=== PATIENT | female | born 1995 | race Caucasian/White ===

== ENCOUNTER 2018-07-08 17:59 | Emergency (ER) | payer SELFPAY ==
--- NOTE | 2018-07-08 19:59 | RAD ---
INDICATION: Cough COMPARISON: None TECHNIQUE: PA and lateral dual-energy views were obtained. FINDINGS: Bones/Soft Tissues: There are no acute bony findings. Cardiomediastinal: The cardiomediastinal silhouette is normal. Lungs: There are no infiltrates. Pleura: There are no pleural effusions. Other: None IMPRESSION: NEGATIVE EXAMINATION.
[2018-07-08] MEDS ORDERED: Albuterol/Ipratropium NEB.SOL* Albuterol 2.5 MG/Ipratropium 0.5 MG 3 ML INH ONE ×2 (20:21→23:00)
--- NOTE | 2018-07-08 22:59 | ED ---
Respiratory - HPI Summary HPI Summary: This is Chris morris documenting for attending physician Sierra Self MD. This patient is a 23 year old F presenting to [facility] c/o a cough that has persistent for the last month. Pt was seen at the almost 3 weeks ago and dx with bronchitis. She finished her course of abx, steroids, inhaler and states sx have returned. She believes her course of steroids were about 14 days long. The patient rates the pain 7/10 in severity. Patient reports trouble breathing. Pt uses marijuana and has hx of asthma - History of Current Complaint Chief Complaint: EDUpperRespComplaint Stated Complaint: SOB, COUGH Time Seen by Provider: 07/08/18 22:34 Hx Obtained From: Patient Onset/Duration: Lasting Weeks - 4, Still Present Timing: Constant Initial Severity: Mild Current Severity: Mild Pain Intensity: 0 Character: Cough (Nonproductive) - Allergy/Home Medications Allergies/Adverse Reactions: Allergies Allergy/AdvReac Type Severity Reaction Status Date / Time No Known Allergies Allergy Verified 07/08/18 18:17 PMH/Surg Hx/FS Hx/Imm Hx Endocrine/Hematology History: Denies: Hx Bone Marrow Disease, Hx Diabetes, Hx Thyroid Disease Cardiovascular History: Denies: Hx Cardiomegaly, Hx Congestive Heart Failure Respiratory History: Reports: Hx Asthma Psychiatric History: Denies: Hx Schizophrenia Infectious Disease History: No Infectious Disease History: Denies: Traveled Outside the [place] in Last 30 Days - Family History Known Family History: Negative: Diabetes, Renal Disease, Respiratory Disease, Seizure Disorder - Social History Alcohol Use: Occasionally Substance Use Type: Reports: Marijuana Substance Use Comment - Amount & Last Used: daily Hx Tobacco Use: Yes Smoking Status (MU): Never Smoked Tobacco Review of Systems Negative: Fever Positive: Cough, Other - trouble breathing All Other Systems Reviewed And Are Negative: Yes Physical Exam - Summary Physical Exam Summary: VITAL SIGNS: Reviewed. GENERAL: Patient is a well-developed and nourished female who is lying comfortable in the stretcher. Patient is not in any acute respiratory distress. HEAD AND FACE: No signs of trauma. No ecchymosis, hematomas or skull depressions. No sinus tenderness. EYES: PERRLA, EOMI x 2, No injected conjunctiva, no nystagmus. EARS: Hearing grossly intact. Ear canals and tympanic membranes are within normal limits. MOUTH: Oropharynx within normal limits. NECK: Supple, trachea is midline, no adenopathy, no JVD, no carotid bruit, no c- spine tenderness, neck with full ROM. CHEST: Symmetric, no tenderness at palpation LUNGS: Mild inspiratory and expiratory wheezes CVS: Regular rate and rhythm, S1 and S2 present, no murmurs or gallops appreciated. ABDOMEN: Soft, non-tender. No signs of distention. No rebound no guarding, and no masses palpated. Bowel sounds are normal. EXTREMITIES: FROM in all major joints, no edema, no cyanosis or clubbing. NEURO: Alert and oriented x 3. No acute neurological deficits. Speech is normal and follows commands. SKIN: Dry and warm Triage Information Reviewed: Yes Vital Signs On Initial Exam: Initial Vitals Temp Pulse Resp BP Pulse Ox 97.9 F 77 20 133/79 99 07/08/18 18:13 07/08/18 18:13 07/08/18 18:13 07/08/18 18:13 07/08/18 18:13 Vital Signs Reviewed: Yes Diagnostics - Vital Signs Vital Signs Temp Pulse Resp BP Pulse Ox 07/08/18 20:16 98.3 F 96 20 123/69 98 07/08/18 18:13 97.9 F 77 20 133/79 99 - Laboratory Lab Statement: Any lab studies that have been ordered have been reviewed, and results considered in the medical decision making process. - Radiology CXR Radiology Interpretation Completed By: Radiologist - NEGATIVE EXAMINATION. ED physician has reviewed this radiology report. Re-Evaluation - Re-Evaluation First Eval Re-Evaluation Time: 23:19 Change: Improved Comment: Pt is feeling better and would like to go home. Disposition - Course Assessment/Plan: This patient is a 23 year old F presenting to [facility] c/o a cough that has persistent for the last month. Pt was seen at the almost 3 weeks ago and dx with bronchitis. She finished her course of abx, steroids, inhaler and states sx have returned. She believes her course of steroids were about 14 days long. The patient rates the pain 7/10 in severity. Patient reports trouble breathing. Pt uses marijuana and has hx of asthma. CXR reveals , per radiologist, NEGATIVE EXAMINATION. Dx asthma. In the ED course the patient was given a breathing treatment which alleviated her sx. Patient will be discharged with prescription for prednisone, albuterol, and codeine and follow up from PCP referral center. The patient is agreeable with this plan. - Diagnoses Provider Diagnoses: Asthma Discharge - Sign-Out/Discharge Documenting (check all that apply): Patient Departure - Discharge Plan Condition: Stable Disposition: HOME Prescriptions: Albuterol HFA INHALER* [Ventolin HFA Inhaler*] 2 puff INH Q6H PRN #1 mdi PRN Reason: Sob/Wheezing Codeine TAB* [Codeine Tab*] 30 mg PO Q6H PRN #14 tab MDD 4 PRN Reason: Cough predniSONE TAB* [Deltasone TAB*] 50 mg PO DAILY #7 tab Patient Education Materials: Asthma (ED) [place] [facility] [place] [facility] [place]] Additional Instructions: RETURN TO EMERGENCY DEPARTMENT FOR ANY NEW OR WORSENING SYMPTOMS Attestation Statement Scribe Attestation: This is Chris morris documenting for attending physician Sierra Self MD. User Type: Provider with Scribe Provider Attestation: The documentation recorded by the kemiibe accurately reflects the service I personally performed and the decisions made by me.
[2018-07-08] MEDS ORDERED: Codeine TAB* 30 MG PO ONE (23:03)
[2018-07-08] MEDS ORDERED: Albuterol 2.5 MG/3 ML NEB.SOL* (0.083%) INH SCH (23:45)
[2018-07-09 00:25] VITALS: BP 118/80
== END 2018-07-09 00:39 | disposition home or self-care (01) ==
LOC: ED 17:59
DX: J45.909 Unspecified asthma, uncomplicated (principal)
CPT/HCPCS: 71046; 99282; A9270-GY

== ENCOUNTER 2020-02-10 10:33 | Emergency (ER) | payer BC ==
--- NOTE | 2020-02-10 11:12 | ED ---
Abdominal Pain/Female - HPI Summary HPI Summary: Pt. is a 24 y.o female who presents to the ER for upper abd. pain x 3 days. Pt. also notes intermittent chest pain and SOB. Denies cough, fever, sore throat, vomiting, dysuria, vaginal bleeding/discharge. Pt. notes pain is sharp and constant in nature. Also notes diarrhea. Past hx of PCOS. Sxs are moderate in severity. No current modifying factors. Patient also notes occasional bright red blood with wiping after bowel movement. - History of Current Complaint Chief Complaint: EDAbdPain Stated Complaint: ABDOMINAL PAIN PER PT Time Seen by Provider: 02/10/20 10:46 Hx Obtained From: Patient Pain Intensity: 8 Allergies/Adverse Reactions: Allergies Allergy/AdvReac Type Severity Reaction Status Date / Time No Known Allergies Allergy Verified 02/10/20 10:38 Home Medications: Home Medications Pantoprazole TAB * [Protonix TAB*] 40 mg PO DAILY #30 tab 02/10/20 [Rx] PMH/Surg Hx/FS Hx/Imm Hx Previously Healthy: Yes Endocrine/Hematology History: Denies: Hx Bone Marrow Disease, Hx Diabetes, Hx Thyroid Disease Cardiovascular History: Denies: Hx Cardiomegaly, Hx Congestive Heart Failure Respiratory History: Reports: Hx Asthma Psychiatric History: Denies: Hx Schizophrenia Infectious Disease History: No Infectious Disease History: Denies: Traveled Outside the [place] in Last 30 Days - Family History Known Family History: Positive: Non-Contributory Negative: Diabetes, Renal Disease, Respiratory Disease, Seizure Disorder - Social History Occupation: Employed Part-time Lives: With Family Alcohol Use: Occasionally Substance Use Type: Reports: Marijuana Substance Use Comment - Amount & Last Used: daily Hx Tobacco Use: Yes Smoking Status (MU): Never Smoked Tobacco Review of Systems Constitutional: Negative Negative: Fever, Chills ENT: Negative Positive: Chest Pain Positive: Shortness Of Breath. Negative: Cough Positive: Abdominal Pain, Diarrhea, Nausea. Negative: Vomiting Genitourinary: Negative Negative: dysuria, discharge, hematuria Musculoskeletal: Negative Skin: Negative Neurological/Mental Status: Negative All Other Systems Reviewed And Are Negative: Yes Physical Exam Triage Information Reviewed: Yes Vital Signs On Initial Exam: Initial Vitals Temp Pulse Resp BP Pulse Ox 98.9 F 60 16 134/82 100 02/10/20 10:34 02/10/20 10:34 02/10/20 10:34 02/10/20 10:34 02/10/20 10:34 Vital Signs Reviewed: Yes Appearance: Positive: Well-Appearing Skin: Positive: Warm, Dry Head/Face: Positive: Normal Head/Face Inspection Eyes: Positive: Normal, EOMI Neck: Positive: Supple Respiratory/Lung Sounds: Positive: Clear to Auscultation, Breath Sounds Present. Negative: Rales, Rhonchi, Wheezes Cardiovascular: Positive: Normal, RRR Abdomen Description: Positive: Other: - Obese. Abd. is soft with mild tenderness to LUQ and LLQ. No rebound or guarding. Mild bilateral CVA tenderness. Rectal exam performed with the medical laboratory techniciansOralia hastings, keyanna exam shows small nonthrombosed hemorrhoids. Digital rectal exam reveals a large amount of hard stool in the rectal vault. No gross blood. Neurological: Positive: Normal, CN Intact II-III Psychiatric: Positive: Affect/Mood Appropriate Procedures - Sedation Patient Received Moderate/Deep Sedation with Procedure: No Diagnostics - Vital Signs Vital Signs Temp Pulse Resp BP Pulse Ox 02/10/20 11:00 51 12 100 02/10/20 10:57 52 109/66 100 02/10/20 10:56 52 100 02/10/20 10:34 98.9 F 60 16 134/82 100 - Laboratory Result Diagrams: 02/10/20 11:26 02/10/20 11:26 Lab Statement: Any lab studies that have been ordered have been reviewed, and results considered in the medical decision making process. Abdominal Pain Fem Course/Dx - Course Course Of Treatment: Patient with upper abdominal pain. Exam is unremarkable chest benign abdomen. Afebrile. General. Physical given with mild relief of symptoms. Labs unremarkable other than mildly elevated CRP. Chest x-ray negative for acute findings per radiology. ECG done at 1117 shows a sinus bradycardia of 58 bpm, normal axis, no ST change. On exam she has mild nonthrombosed external hemorrhoids as well as large amount of hard stool in the lower vault. Suspect symptoms possibly related to gastritis and constipation. Patient does note she drinks a lot of coffee doesn't take anti-inflammatories as well as eating red possible soft. Will treat with Protonix. Discussed foods and drink to avoid. Recommended MiraLAX for constipation as directed. Follow-up with the [facility] within one week for recheck and return to the ER symptoms change or worsen. Patient understands and agrees with plan. - Diagnoses Differential Diagnosis: Positive: Constipation, Ectopic , Pancreatitis , Peptic Ulcer Disease, Pneumonia, Renal Colic, Urinary Tract Infection Provider Diagnoses: Abdominal pain, Gastritis, Constipation, Hemorrhoids Discharge ED - Sign-Out/Discharge Documenting (check all that apply): Patient Departure - Discharge Plan Condition: Good Disposition: HOME Prescriptions: Pantoprazole TAB * [Protonix TAB*] 40 mg PO DAILY #30 tab Patient Education Materials: Gastritis (ED), Constipation (ED), Hemorrhoids (ED ), Acute Abdominal Pain (ED) Forms: *Work Release Referrals: [facility] [Outside] [facility] [place] [facility] [Outside] Additional Instructions: Please schedule follow up appointment with the [facility] Take Protonix as directed Recommend over the counter miralax as directed for constipation Increase fluids and fiber in diet Avoid coffee/caffeine, smoking, acid foods/drink, NSAIDS (motrin) Return to ER for increased pain, fever, vomiting or if concerned - Billing Disposition and Condition Condition: GOOD Disposition: Home
[2020-02-10] MEDS ORDERED: Al Hydrox/Mg Hydrox/Simet LIQ* 30 ML UDC PO ONE (11:13)
[2020-02-10] MEDS ORDERED: Lidocaine 2% VISCOUS* 15 ML UDC PO ONE (11:13)
[2020-02-10 11:37] LABS: ABS Basophils 0.1 10^3/ul (0-0.2); ABS Eosinophils 0.3 10^3/ul (0-0.6); ABS Lymphocytes 4.3 10^3/ul (1.0-4.8); ABS Monocytes 0.4 10^3/ul (0-0.8); ABS Neutrophils 3.8 10^3/ul (1.5-7.7); Eosinophil % 3.1 %; Hematocrit 38 % (35-47); Hemoglobin 12.8 g/dL (12.0-16.0); Lymphocyte % 48.7 %; Mean Corpuscular HGB Conc 34 g/dL (31-36); Mean Corpuscular Hemoglobin 28 pg (27-31); Mean Corpuscular Volume 84 fL (80-97); Mean Platelet Volume 7.1 fL (7.4-10.4); Nucleated Red Blood Cells % 0.1; Platelet Count 380 10^3/uL (150-450); Red Blood Count 4.52 10^6 /uL (3.70-4.87); Red Cell Distribution Width 13 % (10-15); White Blood Count 8.9 10^3/uL (3.5-10.8)
[2020-02-10 12:00] LABS: ALT 17 U/L (7-52); AST 17 U/L (13-39); Albumin 4.5 g/dL (3.2-5.2); Albumin/Globulin Ratio 1.7 (1-3); Alkaline Phosphatase 75 U/L (34-104); Anion Gap 6 mmol/L (2-11); BUN/Creatinine Ratio 13.6 (8-20); Blood Urea Nitrogen 9 mg/dL (6-24); C Reactive Protein 14.28 mg/L (<8.01); CO2 Carbon Dioxide 28 mmol/L (22-32); Calcium 9.3 mg/dL (8.6-10.3); Chloride 105 mmol/L (101-111); EGFR African American 133.1 (>60); Globulin 2.7 g/dL (2-4); Glucose 82 mg/dL (70-100); Potassium 3.9 mmol/L (3.5-5.0); Sodium 139 mmol/L (135-145); Total Protein 7.2 g/dL (6.4-8.9)
[2020-02-10 12:03] LABS: Troponin I 0.01 ng/mL (<0.03)
[2020-02-10 12:07] LABS: HCG Pregnancy < 0.60 mIU/mL
[2020-02-10 12:48] LABS: HIV 4th Generation Nonreactive (Nonreactive)
[2020-02-10 13:12] LABS: Urine Appearance Clear; Urine Bilirubin Negative (Negative); Urine Blood Negative (Negative); Urine Color Straw; Urine Glucose Negative (Negative); Urine Ketones Negative (Negative); Urine Nitrite Negative (Negative); Urine Protein Negative (Negative); Urine Specific Gravity 1.006 (1.010-1.030); Urine Urobilinogen Negative (Negative)
[2020-02-10 14:08] VITALS: BP 127/77
== END 2020-02-10 14:07 | disposition home or self-care (01) ==
LOC: ED 10:33
DX: R10.10 Upper abdominal pain, unspecified (principal); K29.70 Gastritis, unspecified, without bleeding; K59.00 Constipation, unspecified; K64.9 Unspecified hemorrhoids; R07.9 Chest pain, unspecified; R06.02 Shortness of breath; R19.7 Diarrhea, unspecified; R11.0 Nausea; Z79.899 Other long term (current) drug therapy
CPT/HCPCS: 36415; 71045; 80053; 81003; 82272; 83690; 84484; 84702; 85025; 86140; 87389; 93005; 99283; A9270-GY